=== PATIENT | female | born 1975 | race African-American/Black ===

== ENCOUNTER 2018-06-21 13:30 | Inpatient (IN) | payer OTHER ==
[~2018-06-21] VITALS: Ht 180.3 cm; Wt 77.1 kg
== END 2018-06-28 16:37 | disposition home or self-care (01) | DRG 193 ==
LOC: ER 13:30 → MEDI 19:23 → MEDJ 19:23 → MEDI 06-28 16:37
PROC: 4A033R1 Measurement of Arterial Saturation, Peripheral, Percutaneous Approach (ICD-10-PCS; principal; 2018-06-21)
PROC: 3E0F7GC Introduction of Other Therapeutic Substance into Respiratory Tract, Via Natural or Artificial Opening (ICD-10-PCS; 2018-06-21)
PROC: BB24ZZZ Computerized Tomography (CT Scan) of Bilateral Lungs (ICD-10-PCS; 2018-06-21)
PROC: 8E0ZXY6 Isolation (ICD-10-PCS; 2018-06-22)
PROC: BW25YZZ Computerized Tomography (CT Scan) of Chest, Abdomen and Pelvis using Other Contrast (ICD-10-PCS; 2018-06-23)
PROC: 30233N1 Transfusion of Nonautologous Red Blood Cells into Peripheral Vein, Percutaneous Approach (ICD-10-PCS; 2018-06-26)
PROC: 0W9B30Z Drainage of Left Pleural Cavity with Drainage Device, Percutaneous Approach (ICD-10-PCS; 2018-06-27)
PROC: 02HV33Z Insertion of Infusion Device into Superior Vena Cava, Percutaneous Approach (ICD-10-PCS; 2018-06-28)
DX: J16.8 Pneumonia due to other specified infectious organisms (principal); B37.1 Pulmonary candidiasis; J11.1 Influenza due to unidentified influenza virus with other respiratory manifestations; D50.0 Iron deficiency anemia secondary to blood loss (chronic)